=== PATIENT | female | born 1985 | race Caucasian/White ===

== ENCOUNTER 2023-12-06 09:24 | Outpatient (CLI) | payer OTHER ==
--- NOTE | 2023-12-07 09:48 | Ultrasound Report ---
PROCEDURE: OB Anatomy Scan INDICATIONS: SUPERVISION OF OUTSIDE/PRIOR DATING DATA: Last menstrual period (LMP): 07/12/2023. LMP-based estimated date of delivery (ADOLFO): 04/17/2024. First dating scan (date and location): 09/10/2023. Estimated date of delivery (ADOLFO) from first dating scan: 04/18/2024. The below data below was generated using the working ADOLFO of 04/17/2024 TECHNIQUE: Real-time scanning was performed of the fetus, with image documentation and biometric measurements. Endovaginal scanning: Not performed. COMPARISON: None available . FINDINGS: General: A single living intrauterine gestation is present. Presentation: Breech Placenta: Placental position is posterior, without previa. Amniotic fluid index: 14.3 cm, with the largest pocket measuring 4.3 cm. heart rate: 132 beats per minute. Maternal cervical canal: 4.4 cm long; normal length is 2.5 cm or more. biometrics: Biparietal diameter: 4.9 cm; 20 weeks 5 days; 36%. Head circumference: 18.8 cm; 21 weeks 1 day; 44%. Abdominal circumference: 16.9 cm; 21 weeks 6 days; 72%. Femur length: 3.7 cm; 21 weeks 4 days; 64%. Estimated gestational age from initial scan: 21 weeks 0 day. Composite gestational age from present scan: 21 weeks 2 days. Estimated weight and percentile: 440 g; 79% for gestational age. Measurement variability in biometric dating: +/- 10 days from 12-20 weeks gestation, +/- 2 weeks from 20-30 weeks gestation, +/- 3 weeks at 30 weeks gestation or later. Anatomic survey: Neuro: Ventricles are normal at less than 10 mm. Cisterna magna is normal at 3-11 mm. Cerebellum i s normal in size and morphology. Nuchal skin fold: Normal at less than 6 mm between 14 and 20 weeks gestational age. Face: Nose and lips, facial profile are normal. Spine: No evidence for spina bifida. Heart: 4-chambered heart is present. The left ventricular outflow tract is more. The right ventricul ar outflow tract is not well seen. Diaphragm: Diaphragm is intact. Stomach: Left-sided stomach is present. Kidneys: No hydronephrosis. Normal is less than 5 mm in 2nd trimester, less than 7 mm in 3rd trimester. Cord: 3 vessel cord has orthotopic insertion. Bladder: Normal in size. Extremities: All 4 extremities are visualized. IMPRESSION: 1. A single living IUP with appropriate interval growth. 2. The estimated weight is at the 79th percentile for gestational age. 3. Normal JOHN. 4. The right ventricular outflow tract is not well seen. Otherwise normal anatomic survey. Reviewed by: Valeri Saldivar MD on 12/07/2023 8:47 AM JULIET Approved by: Valeri Saldivar MD on 12/07/2023 8:47 AM JULIET Station ID: [id number]
== END 2023-12-06 09:25 | disposition home or self-care (01) ==
LOC: DI 09:24
PROVIDERS: ATTEND Nurse Practitioner Obstetrics & Gynecology
DX: Z34.02 Encounter for supervision of normal first pregnancy, second trimester (principal); Z36.89 Encounter for other specified antenatal screening

== ENCOUNTER 2024-01-13 07:32 | Outpatient (CLI) | payer OTHER ==
[2024-01-13 07:55] LABS: HCT - HEMATOCRIT 34.1 % (37.0-47.0); HGB - HEMOGLOBIN 10.9 g/dL (12.0-16.0); MEAN CORPUSCULAR HEMOGLOBIN 29.7 pg (27.0-31.0); MEAN CORPUSCULAR VOLUME 92.9 fL (81.0-99.0); MEAN PLATELET VOLUME 9.8 fL (7.9-10.8); RED BLOOD COUNT 3.67 10^6/uL (4.20-5.40); RED CELL DISTRIBUTION WIDTH 12.5 % (12.0-15.0); WHITE BLOOD COUNT 9.8 x10^3/uL (4.8-10.8)
[2024-01-13 08:05] LABS: GTT GLUCOSE,FASTING 87 mg/dL (74-109)
== END 2024-01-13 07:33 | disposition home or self-care (01) ==
LOC: LAB 07:32
PROVIDERS: ATTEND Nurse Practitioner Obstetrics & Gynecology
DX: Z36.9 Encounter for antenatal screening, unspecified (principal)
CPT/HCPCS: 36415; 82951; 85027

== ENCOUNTER 2024-03-06 08:00 | Outpatient (CLI) | payer OTHER ==
[2024-03-06 15:27] LABS: HCT - HEMATOCRIT 37.5 % (37.0-47.0); HGB - HEMOGLOBIN 12.8 g/dL (12.0-16.0); MEAN CORPUSCULAR HEMOGLOBIN 29.7 pg (27.0-31.0); MEAN CORPUSCULAR HGB CONC 34.1 g/dL (32.0-36.0); MEAN PLATELET VOLUME 10.4 fL (7.9-10.8); RED BLOOD COUNT 4.31 10^6/uL (4.20-5.40); RED CELL DISTRIBUTION WIDTH 12.6 % (12.0-15.0); WHITE BLOOD COUNT 12.8 x10^3/uL (4.8-10.8)
[2024-03-06 15:58] LABS: FERRITIN 18.1 ng/mL (11.0-306.8)
[2024-03-06 17:31] LABS: CALCIUM 9.3 mg/dL (8.5-10.3); CREATININE 0.5 mg/dL (0.6-1.3); POTASSIUM 3.9 mmol/L (3.5-4.5)
== END 2024-03-06 23:59 | disposition home or self-care (01) ==
LOC: LAB.WCP 08:00
PROVIDERS: ATTEND Nurse Practitioner
DX: R42 Dizziness and giddiness (principal)
CPT/HCPCS: 36415; 80048; 82728; 85027

== ENCOUNTER 2024-03-21 17:08 | Outpatient (CLI) | payer OTHER | END 2024-03-21 17:09 | disposition home or self-care (01) | LOC: LAB.WC 17:08 | PROVIDERS: ATTEND Nurse Practitioner | DX: Z36.85 Encounter for antenatal screening for Streptococcus B (principal) | CPT/HCPCS: 87081; 87797 ==

== ENCOUNTER 2024-04-10 08:08 | Inpatient (IN) ==
[2024-04-10] MEDS ORDERED: NIFEdipine 10 MG CAPSULE PO PRN (08:23)
[2024-04-10] MEDS ORDERED: SODIUM CHLORIDE FLUSH 0.9% 10 ML SYRINGE IVP PRN ×2 (08:23→22:03)
[2024-04-10] MEDS ORDERED: hydrALAZINE INJ 20 MG/ML VIAL IVP PRN ×2 (08:23)
[2024-04-10] MEDS ORDERED: METHYLERGONOVINE 0.2 MG/ML VIAL IM PRN (08:23)
[2024-04-10] MEDS ORDERED: CARBOPROST TROMETHAMINE 250 MCG/ML VIAL IM PRN (08:23)
[2024-04-10] MEDS ORDERED: OXYTOCIN/SODIUM CHLORIDE 500 ML IV PRN ×2 (08:23→22:54)
[2024-04-10] MEDS ORDERED: miSOPROStoL 200 MCG TABLET BC PRN (08:23)
[2024-04-10] MEDS ORDERED: LABETALOL 20 MG/4 ML SYRINGE IVP PRN ×3 (08:23)
[2024-04-10] MEDS ORDERED: TRANEXAMIC ACID IN NACL 1,000 MG/100 ML BAG IV PRN (08:23)
[2024-04-10] MEDS ORDERED: OXYTOCIN 10 UNIT/ML VIAL IM PRN (08:23)
[2024-04-10] MEDS ORDERED: lidocaine 1% 20 ML MDV ID PRN (08:23)
[2024-04-10] MEDS ORDERED: ONDANSETRON 4 MG/2 ML VIAL IVP PRN (08:28)
[2024-04-10] MEDS ORDERED: fentaNYL 100 MCG/2 ML VIAL IVP PRN ×2 (08:28→22:59)
[2024-04-10 08:55] LABS: BASOPHILS # (AUTO) 0.1 10^3/uL (0.0-0.1); BASOPHILS % (AUTO) 0.4 %; EOSINOPHILS # (AUTO) 0.3 10^3/uL (0.0-0.7); EOSINOPHILS % (AUTO) 2.3 %; HCT - HEMATOCRIT 38.7 % (37.0-47.0); HGB - HEMOGLOBIN 13.3 g/dL (12.0-16.0); LYMPHOCYTES # (AUTO) 2.3 10^3/uL (1.5-3.5); LYMPHOCYTES % (AUTO) 17.1 %; MEAN CORPUSCULAR HEMOGLOBIN 29.7 pg (27.0-31.0); MEAN CORPUSCULAR HGB CONC 34.4 g/dL (32.0-36.0); MEAN CORPUSCULAR VOLUME 86.4 fL (81.0-99.0); MEAN PLATELET VOLUME 10.6 fL (7.9-10.8); MONOCYTES # (AUTO) 1.4 10^3/uL (0.0-1.0); MONOCYTES % (AUTO) 10.6 %; NEUTROPHILS # (AUTO) 9.2 10^3/uL (1.5-6.6); NEUTROPHILS % (AUTO) 69.2 %; PLT - PLATELET COUNT 298 10^3/uL (130-450); RED BLOOD COUNT 4.48 10^6/uL (4.20-5.40); RED CELL DISTRIBUTION WIDTH 12.8 % (12.0-15.0); WHITE BLOOD COUNT 13.3 x10^3/uL (4.8-10.8)
[2024-04-10] MEDS ORDERED: SODIUM CHLORIDE FLUSH 0.9% 10 ML SYRINGE IVP SCH (09:00)
[2024-04-10 09:08] LABS: ALBUMIN 3.5 g/dL (3.2-5.5); BILIRUBIN,TOTAL 0.3 mg/dL (0.2-1.0); CALCIUM 9.2 mg/dL (8.5-10.3); CREATININE 0.6 mg/dL (0.6-1.3); POTASSIUM 3.9 mmol/L (3.5-4.5); TOTAL PROTEIN 6.9 g/dL (6.4-8.9)
[2024-04-10] MEDS: miSOPROStoL 100 MCG TABLET BC SCH (09:23)
[2024-04-10] MEDS: CALCIUM CARBONATE CHEW 500 MG TABLET PO SCH (09:23)
--- NOTE | 2024-04-10 09:34 | HISTORY & PHYSICAL EXAMINATION ---
Admit History Smoking Status: Former smoker HPI Current : Vital Signs Temperature 36.8 C 04/10/24 08:34 Pulse Rate 113 H 04/10/24 08:34 Respiratory Rate 16 04/10/24 08:34 Blood Pressure 125/86 04/10/24 08:34 Temperature 36.8 C 04/10/24 08:34 Pulse Rate 113 H 04/10/24 08:34 Respiratory Rate 16 04/10/24 08:34 Blood Pressure 125/86 04/10/24 08:34 NST Procedure NST Procedure: NST Procedure Start Time 15:34 Stop Time 15:55 Meds/Allgy Home Medications Ambulatory Orders Medication Instructions Recorded Confirmed aspirin 81 mg tablet,delayed 81 mg PO QDAY 04/04/24 04/04/24 release (Gloria Low Dose Aspirin) doxylamine succinate 25 mg tablet 25 mg PO Q6H PRN 04/04/24 04/04/24 ferrous sulfate 325 mg (65 mg 325 mg PO QDAY 04/04/24 04/04/24 iron) tablet (Feosol) vitamins no.159-iron tab PO 04/04/24 04/04/24 fumarate 28 mg-folic acid 800 mcg tablet ( Vitamin) pyridoxine (vitamin B6) 50 mg 50 mg PO QDAY 04/04/24 04/04/24 tablet Allergies Allergies Allergy/AdvReac Type Severity Reaction Status Date / Time Penicillins AdvReac Mild Unknown Verified 04/10/24 09:04 [facility] Medical History Medical History (Updated 04/10/24 @ 16:46 by Lisa Rodriguez CRNA) Exercise-induced asthma Surgical History Surgical History (Updated 04/04/24 @ 12:55 by Hanny Brannon MA) H/O oral surgery 2004 Social History Social History (Updated 04/04/24 @ 12:56 by Hanny Brannon MA) Smoking Status: Former smoker Patient requests smoking cessation consult: No Initiate information on smoking cessation: No Physical Abdominal Exam Vital Signs: Temp Pulse Resp BP 36.8 C 113 H 16 125/86 04/10/24 08:34 04/10/24 08:34 04/10/24 08:34 04/10/24 08:34 Plan for Labor Plan For Labor I expect patient to be DC'd or transferred within 96 hours.: Yes Plan for Labor: Elizabeth presents today for induction of labor with pre-induction cervical ripening secondary to advanced maternal age and obesity complicated . Upon arrival her cervix is noted to be 3/50/-3 and vertex with intact membranes. FHR demonstrates a Category I pattern. She has been a patient of [facility] since her transfer of care from [facility] at 32wks gestation. She has received consistent care for the duration of her which has been complicated by her advanced maternal age and obesity. She has had weekly NSTs which were initiated at 36wks gestation. In addition, her baby was noted to be in a breech position at 37wks gestation however when she presented for her ECV the fetus has spontaneously turned to vertex presentation. Dating criteria: LMP: 07/12/2023 ADOLFO by LMP: 04/17/2024 Medical Hx: PCOS, Anxiety, Depression Surgical History: Oral surgery (2004) Social Hx: Never smoker. No ETOH or IVDA. Works at [employer] with partner. Blood type: O+ Antibody: negative CBC: PLT HCT HGB RUB: immune VZV: immune HBsAg: negative HepC: negative RPR/AB-EIA: non-reactive HIV: negative PAP: due PP GC/CT: negative HSV: denies Genetic testing: QNatal-negative; MSAFP-negative Covid: vaccinated Flu: 03/21 FAS: Placenta: posterior Cord: 3VC JOHN: normal EFW: 79%ile 50gm OGCT: 2HR: F 87; 1hr 82; 2hr 105 3HR GTT: TDAP: 02/20 Breast Pump: Has one 3rd trimester PLT 261 HCT 34.1; HBG 10.9 GBS: POSITIVE RSV 03/21 Physical exam: Normocephalic, atraumatic Heart RRR w/o M/G/R Lungs CTAB Abdomen gravid, soft and nontender EFW 3600g FHR baseline 150s, moderate variability, + accels, no decels No contractions appreciated via tocometry SVE 3/50/-3 and vertex Bilateral LE's trace edema Mood is good Assessment: 39yo @ 39.0wks gestation by LMP c/w Medical induction of labor Advanced maternal age Obesity complicated , third trimester FHR Category I GBS POSITIVE Plan: Admit to [facility] under observation status for pre-induction cervical ripening with misoprostol x 1 dose of 50mcg BC Then admit to [facility] for induction of labor with pitocin and titrate per protocol. Initiate Ampicilin for GBS prophylaxis per protocol with initiation of pitocin. Continuous monitoring. Jacuzzi PRN. Nitrous oxide PRN. Epidural per maternal request. Anticipate . Conclusion/Plan Lab Results 04/10/24 08:40 04/10/24 08:40
[2024-04-10] MEDS ORDERED: diphenhydrAMINE INJ 50 MG/ML VIAL IVP PRN (13:43)
[2024-04-10] MEDS: AMPICILLIN 2 GM in SODIUM CHLORIDE 0.9% MINIBAG 100 ML IV ONE (14:10)
[2024-04-10] MEDS ORDERED: LACTATED RINGERS 1,000 ML ONE (14:13)
[2024-04-10] MEDS: OXYTOCIN/SODIUM CHLORIDE 500 ML IV SCH (14:22)
[2024-04-10] MEDS: LACTATED RINGERS 1,000 ML IV SCH (14:22)
--- NOTE | 2024-04-10 16:47 | ANESTHESIA PROCEDURE NOTE ---
Pre-Anesthesia VS, & Labs Diagnosis Surgical Diagnosis:: Induction of labor Procedure Procedure: vaginal delivery Vitals Vital Signs: Temp Pulse Resp BP 36.8 C 113 H 16 125/86 04/10/24 08:34 04/10/24 08:34 04/10/24 08:34 04/10/24 08:34 Height (in): 5 ft 2 in Weight (kg): 101.6 kg Body Mass Index: 40.9 BMI Classification: Morbidly Obese NPO Last Fluid Intake: clear liquids during labo Is Patient ?: Yes Lab Results Current Lab Results: Laboratory Tests 04/10/24 09:03: Blood Type Recheck O POSITIVE 04/10/24 08:40: WBC 13.3 H, RBC 4.48, Hgb 13.3, Hct 38.7, MCV 86.4, MCH 29.7, MCHC 34.4, RDW 12.8, Plt Count 298, MPV 10.6, Neut # (Auto) 9.2 H, Lymph # (Auto) 2.3, Nash # (Auto) 1.4 H, Eos # (Auto) 0.3, Baso # (Auto) 0.1, Absolute Nucleated RBC 0.00, Nucleated RBC % 0.0, Sodium 134 L, Potassium 3.9, Chloride 107, Carbon Dioxide 18 L, Anion Gap 9.0, BUN 6, Creatinine 0.6, Estimated GFR (MDRD) 112, Glucose 94, Calcium 9.2, Total Bilirubin 0.3, AST 15, ALT 8 L, A lkaline Phosphatase 144 H, Total Protein 6.9, Albumin 3.5, Globulin 3.4, Albumin/Globulin Ratio 1.0, Blood Type O POSITIVE, Antibody Screen NEGATIVE Lab results reviewed: Yes 04/10/24 08:40 04/10/24 08:40 Meds/Allgy Home Medications Ambulatory Orders Medication Instructions Recorded Confirmed aspirin 81 mg tablet,delayed 81 mg PO QDAY 04/04/24 04/04/24 release (Gloria Low Dose Aspirin) doxylamine succinate 25 mg tablet 25 mg PO Q6H PRN 04/04/24 04/04/24 ferrous sulfate 325 mg (65 mg 325 mg PO QDAY 04/04/24 04/04/24 iron) tablet (Feosol) vitamins no.159-iron tab PO 04/04/24 04/04/24 fumarate 28 mg-folic acid 800 mcg tablet ( Vitamin) pyridoxine (vitamin B6) 50 mg 50 mg PO QDAY 04/04/24 04/04/24 tablet Allergies Allergies Allergy/AdvReac Type Severity Reaction Status Date / Time Penicillins AdvReac Mild Unknown Verified 04/10/24 09:04 [facility] Medical History Medical History (Updated 04/10/24 @ 16:46 by Lisa Rodriguez CRNA) Exercise-induced asthma Surgical History Surgical History (Updated 04/04/24 @ 12:55 by Hanny Brannon MA) H/O oral surgery 2004 Social History Social History (Updated 04/04/24 @ 12:56 by Hanny Brannon MA) Smoking Status: Former smoker Patient requests smoking cessation consult: No Initiate information on smoking cessation: No Anesthesia Exam (Expanded) Exam General: Alert, Oriented x3 and Cooperative Dental: WNL Mouth Openin Fingerbreadth Neck Mobility: Normal Mallampati classification: II Thyromental Distance: 4-6 cm Mental/Cognitive Status: Alert/Oriented X3 and Normal for patient Plan Plan Anesthesia Type: Epidural Consent for Procedure(s) Verified and Reviewed: Yes Code Status: Attempt Resuscitation ASA Classification ASA classification: 2-Mild systemic disease Is this case an emergency?: No
[2024-04-10] MEDS: AMPICILLIN 1 GM in SODIUM CHLORIDE 0.9% MINIBAG 100 ML IV SCH (18:14)
[2024-04-10] MEDS ORDERED: LIDOCAINE 2%-EPI 1:100000 20 ML MDV ONE ×2 (19:05→21:10)
[2024-04-10] MEDS ORDERED: ROPIVACAINE 0.2% 200 MG/100 ML BAG EP ONE (19:06)
[2024-04-10] MEDS ORDERED: ROPIVACAINE 0.2% 200 MG/100 ML BAG EP PRN (19:12)
[2024-04-10 20:27] LABS: BASOPHILS % (AUTO) 0.2 %; EOSINOPHILS # (AUTO) 0.2 10^3/uL (0.0-0.7); HCT - HEMATOCRIT 39.7 % (37.0-47.0); LYMPHOCYTES # (AUTO) 2.2 10^3/uL (1.5-3.5); LYMPHOCYTES % (AUTO) 13.3 %; MEAN CORPUSCULAR HGB CONC 32.7 g/dL (32.0-36.0); MEAN CORPUSCULAR VOLUME 88.6 fL (81.0-99.0); MEAN PLATELET VOLUME 10.6 fL (7.9-10.8); MONOCYTES # (AUTO) 1.7 10^3/uL (0.0-1.0); MONOCYTES % (AUTO) 10.1 %; NEUTROPHILS # (AUTO) 12.3 10^3/uL (1.5-6.6); PLT - PLATELET COUNT 308 10^3/uL (130-450); RED BLOOD COUNT 4.48 10^6/uL (4.20-5.40); WHITE BLOOD COUNT 16.5 x10^3/uL (4.8-10.8)
--- NOTE | 2024-04-10 20:29 | PROVIDER PROGRESS NOTE ---
Labor Progress Note Uterine Monitoring Uterine Monitoring Mode: positive External toco Contraction Intensity: positive Mild Monitoring Monitor Mode: positive External ultrasound Heart Rate Variability: positive Moderate (6-25 bmp) Accelerations: positive Present, 15x15 Decelerations: positive None Vaginal Exam Dilation (in cm): 5 Effacement (%): 80 Station: -2 Labor Progress Note Labor Progress Note/Additional Text: S: Patient is feeling extremely anxious per her normal baseline but she states she is feeling very comfortable with proceeding with a delivery. She states the most significant part of her anxiety surrounding delivery came from pushing out a baby and she now does not have to do that so she is feeling accepting of this. O: FHR baseline 130, moderate variability, + accels, no decels Contractions palpate moderate every 2-4 minutes with soft resting tone AROM at 2004 and was noted to be a moderate amount of clear fluid Immediately following AROM presenting part was noted to be extremity and not cephalic Pt meets criteria for gestational hypertension, Pre-E labs pending collection now-prior labs WNL. 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 Reviewed with patient that care would be handed to physician secondary to proceed with section and pt agrees.
[2024-04-10] MEDS ORDERED: ceFAZolin 2 GM VIAL ONE (20:30)
[2024-04-10 20:31] LABS: SLIDE REVIEW? Indicated
[2024-04-10 20:40] LABS: ALBUMIN 3.6 g/dL (3.2-5.5); BILIRUBIN,TOTAL 0.2 mg/dL (0.2-1.0); CALCIUM 9.4 mg/dL (8.5-10.3); CREATININE 0.6 mg/dL (0.6-1.3); POTASSIUM 3.7 mmol/L (3.5-4.5); TOTAL PROTEIN 7.1 g/dL (6.4-8.9)
[2024-04-10] MEDS ORDERED: CITRIC ACID/SODIUM CITRATE 15 ML UDC PO ONE (20:41)
[2024-04-10 20:52] LABS: DIFFERENTIAL COMMENT MANUAL=AUTO DIFF; PLATELET ESTIMATE, MANUAL NORMAL (130-450,000) (NORMAL); PLATELET MORPHOLOGY NORMAL APPEARANCE (NORMAL); RBC MORPHOLOGY (MULTIPLE) NORMAL APPEARANCE (NORMAL)
[2024-04-10] MEDS: CITRIC ACID/SODIUM CITRATE 15 ML UDC PO ONE (21:02)
[2024-04-10] MEDS ORDERED: miSOPROStoL 200 MCG TABLET ONE (21:09)
[2024-04-10] MEDS ORDERED: CARBOPROST TROMETHAMINE 250 MCG/ML VIAL IM ONE (21:09)
[2024-04-10] MEDS ORDERED: METHYLERGONOVINE 0.2 MG/ML VIAL ONE (21:09)
[2024-04-10] MEDS ORDERED: OXYTOCIN/SODIUM CHLORIDE 500 ML IV ONE (21:10)
[2024-04-10] MEDS ORDERED: DEXMEDETOMIDINE 200 MCG/2 ML VIAL ONE (21:23)
[2024-04-10] MEDS ORDERED: SODIUM CHLORIDE 0.9% 10 ML VIAL IVP ONE (21:46)
[2024-04-10] MEDS ORDERED: PROPOFOL 200 MG/20 ML VIAL IVP ONE (21:46)
[2024-04-10] MEDS ORDERED: KETAMINE 500 MG/10 ML VIAL ONE (21:51)
[2024-04-10] MEDS ORDERED: ACETAMINOPHEN 1,000 MG/100 ML 1,000 MG/100 ML BAG IV ONE (22:10)
[2024-04-10] MEDS ORDERED: KETOROLAC 30 MG/ML VIAL ONE (22:11)
[2024-04-10] MEDS ORDERED: NALOXONE 0.4 MG/ML VIAL IVP PRN ×2 (22:54→22:59)
[2024-04-10] MEDS ORDERED: HYDROmorphone 0.5 MG/0.5 ML SYRINGE IVP PRN (22:59)
[2024-04-10] MEDS ORDERED: ATROPINE ABBOJECT 1 MG/10 ML SYRINGE IVP PRN (22:59)
[2024-04-10] MEDS ORDERED: MORPHINE 2 MG/ML CARPUJECT IVP PRN (22:59)
[2024-04-10] MEDS ORDERED: LACTATED RINGERS 1,000 ML IV SCH (23:00)
--- NOTE | 2024-04-10 23:03 | ANESTHESIA POST OP EVALUATION ---
Anesthesia Post Eval Post Anesthesia Eval Vitals: Last Vital Signs Temp 36.4 C L 04/10/24 22:30 Pulse 68 04/10/24 22:55 Resp 22 04/10/24 22:55 BP 110/78 04/10/24 22:55 Pulse Ox 96 04/10/24 22:55 CV Function Including HR & BP: Stable Pain Control: Satisfactory Nausea & Vomiting: Negative Mental Status: Baseline Respiratory Status: Airway Patent Hydration Status: Satisfactory Anesthesia Complications: None
--- NOTE | 2024-04-10 23:04 | ANESTHESIA PROCEDURE NOTE ---
Epidural Discontinuation Epidural D/C Discontinued: positive Epidural d/c and Tip intact
--- NOTE | 2024-04-10 23:09 | OPERATIVE REPORT ---
Operative Report General Admit Date: 04/10/24 Procedure Data: Operation Date: 04/10/24 21:00 Proposed Procedures p Section(Not Applicable) - Ofelia Don DO Janna Actual Procedures p Section(Not Applicable) - Ofelia Don DO Janna Pre-Op Diagnosis: BREECH PRESENTATION Anesthesia Type Epidural Case Staff Anesthesia Provider: Lisa Rodriguez Assisting Provider: Bernie Zamorano Case Times Into Recovery: 04/10/24 22:29 Procedure Start: 04/10/24 21:31 Procedure End: 04/10/24 22:16 Time out: 04/10/24 21:28 Tourniquet Tourniquet #: Tourniquet Site Padding: Pressure: Applied by: Time up #1: Time Down #1: Time Up #2: Time Down #2: Pre-Op Diagnosis: 39yo with IUP 39w, breech presentation, AMA Post Op Diagnosis: 39yo with IUP 39w, breech presentation, AMA Procedure Note Estimated Blood Loss (ml): 800 Pathology: Cord blood and gases collected Placenta discarded Indications: 39yo with IUP 39w admitted today for AMA induction. Initially noted to be cephalic, after misoprostol given and AROM performed, extremity noted. Informed consent obtained for section. Findings: Head maternal right, transverse back down lie Normal appearing uterus, tubes, ovaries Other Other Information/Narrative: Under epidural anaesthetic with a martin catheter inserted, the patient was prepped and draped in the usual sterile fashion in the supine position with a leftward tilt. A Pfannensteil incision was made. The incision was carried down to the fascia with cautery. The fascia was incised transversely and dissected off the rectus muscle using sharp dissection. Electrocautery was used for hemostasis. The peritoneum was opened taking care not to injure the bladder. The vesicouterine peritoneum was dissected off the lower uterine segment. The lower segment was assessed and a low transverse incision was made. The uterine incision was extended bluntly. The fetus was presenting as a transverse back down lie, head maternal right. Presenting part was right arm. It was difficult to palpate and grasp feet, and the head was high maternal right side. The hysterotomy was extended about 2cm midline vertically in a T fashion. feet were then grasped and delivered. Body, arms and flexed head then delivered. Cord was clamped twice and cut and the baby transferred to the warmer, awaiting the pediatric staff. Cord blood and gases were then obtained. The placenta was then delivered with assistance. The uterus was explored and was empty of all tissue. The uterus was exteriorized for better visualization. The uterine incision was then closed with 0-Monocryl. The vertical extension also repaired with 0-Monocryl. Tubes and ovaries were examined and appeared normal. Hemostasis noted at all dissection sites. Intercede placed over hysterorraphy. The fascia was closed with 0-Vicryl in a running unlocked fashion. Subcutaneous layer reapproximated with 2-0 chromic. Skin was then reapproximated with 3-0 Monocryl. At the end of the procedure all sponges, instruments, and sharps were counted and correct. Estimated blood loss was 800cc. The patient and baby were taken to the recovery in stable condition. Apgars 1/6/8. Due to the vertical midline T extension, recommend a repeat section in subsequent pregnancies.
--- NOTE | 2024-04-10 23:41 | DELIVERY NOTE ---
Delivery Note Labor Labor: positive Induced by ARM Delivery Method Delivery Method: positive Primary Cervical Ripening Method Cervical Ripening Method: positive Misoprostil Presentation Presentation: positive Transverse (Head maternal right, transverse back down) Nuchal Cord Nuchal Cord: positive None Amniotic Fluid Description Amniotic Fluid Description: positive Clear Delivery Outcome Delivery Outcome: positive Livebirth Cuddy : positive Stimulated, Warmed and Warmer used sex: positive Male Cord Cord: positive 3 vessels Placenta Placenta: positive Expressed Estimated Blood Loss Estimated Blood Loss (in cc): 800 Delivery Comments (Free Text/Narrative) Delivery Comments (Free Text/Narrative): See operative report, recommend repeat section in subsequent pregnancies.
[2024-04-11] MEDS: oxyCODONE 5 MG TABLET PO PRN (00:27)
[2024-04-11] MEDS: KETOROLAC 30 MG/ML VIAL IVP SCH (04:18)
[2024-04-11] MEDS ORDERED: CITRIC ACID/SODIUM CITRATE 15 ML UDC PO ONE (04:30)
[2024-04-11 05:29] LABS: HCT - HEMATOCRIT 33.7 % (37.0-47.0); HGB - HEMOGLOBIN 11.1 g/dL (12.0-16.0); MEAN CORPUSCULAR HEMOGLOBIN 28.9 pg (27.0-31.0); MEAN CORPUSCULAR HGB CONC 32.9 g/dL (32.0-36.0); MEAN CORPUSCULAR VOLUME 87.8 fL (81.0-99.0); MEAN PLATELET VOLUME 10.8 fL (7.9-10.8); RED BLOOD COUNT 3.84 10^6/uL (4.20-5.40); WHITE BLOOD COUNT 21.9 x10^3/uL (4.8-10.8)
[2024-04-11 06:52] LABS: PROTEIN/CREATININE RATIO,URINE 0.2 (<=0.2)
[2024-04-11] MEDS: ACETAMINOPHEN 500 MG TABLET PO SCH (08:07)
[2024-04-11] MEDS: DOCUSATE SODIUM 100 MG CAPSULE PO SCH (08:11)
--- NOTE | 2024-04-11 08:22 | PROVIDER PROGRESS NOTE ---
Subjective Subjective Subjective: Subjective Patient reports she is doing well. Lochia appropriate. Denies heavy bleeding. Ambulating. Pelvic and abdominal pain well-controlled. Tolerating oral intake. Diet: Regular. Voiding without difficulty. Passing flatus. Denies BM. Patient is bonding with baby in room Breast feeding going well. Denies feeling lightheaded, dizzy or excessively fatigued. Current Medications Current Medications Current Medications: Current Medications Generic Name Dose Route Start Last Admin Trade Name Freq PRN Reason Stop Dose Admin Acetaminophen 1,000 mg 04/10/24 23:00 04/11/24 08:07 Acetaminophen 500 Mg Tablet PO 1,000 mg Q8H SRINIVAS Administration Calcium Carbonate/Glycine 500 mg 04/10/24 10:00 04/11/24 08:10 Calcium Carbonate Chew 500 Mg Tablet PO 500 mg BID SRINIVAS Administration Carboprost Tromethamine 250 mcg 04/10/24 08:23 Carboprost Tromethamine 250 Mcg/Ml Vial IM 04/15/24 08:23 Q15M PRN Step 4: Hemorrhage protocol Diphenhydramine HCl 25 mg 04/10/24 13:43 Diphenhydramine Inj 50 Mg/Ml Vial IVP Q6H PRN Allergy Symptoms Docusate Sodium 200 mg 04/11/24 09:00 04/11/24 08:11 Docusate Sodium 100 Mg Capsule PO 200 mg BID SRINIVAS Administration Hydralazine HCl 5 - 20 mg 04/10/24 08:23 Hydralazine Inj 20 Mg/Ml Vial IVP Q20M PRN SBP >160 or DBP >110 Protocol Hydralazine HCl 10 mg 04/10/24 08:23 Hydralazine Inj 20 Mg/Ml Vial IVP 04/15/24 08:23 .ONCE PRN Step 9 of Labetalol protocol Protocol Tranexamic Acid 1,000 mg in 100 mls @ 600 mls/hr 04/10/24 08:23 Tranexamic 1,000 Mg/100ml-Nacl IV 04/15/24 08:23 .ONCE PRN EBL >1200mL and within 3hr Lactated Ringer's 1,000 mls @ 125 mls/hr 04/10/24 15:00 04/11/24 06:15 Lr IV 125 mls/hr .Q8H SRINIVAS Administration Oxytocin/Sodium Chloride 500 mls @ 999 mls/hr 04/10/24 22:54 Pitocin/Sodium Chloride IV PRN PRN POST- HEMORR PREVENTION Protocol 999 MILLIUNIT/MIN Ibuprofen 600 mg 04/11/24 23:00 Ibuprofen 600 Mg Tablet PO Q6HR SRINIVAS Ketorolac Tromethamine 30 mg 04/11/24 00:00 04/11/24 04:18 Ketorolac 30 Mg/Ml Vial IVP 04/11/24 12:01 30 mg Q6HR SRINIVAS Administration Labetalol HCl 20 - 80 mg 04/10/24 08:23 Labetalol 20 Mg/4 Ml Syringe IVP Q10M PRN SBP >160 or DBP >110 Protocol Labetalol HCl 20 mg 04/10/24 08:23 Labetalol 20 Mg/4 Ml Syringe IVP 04/15/24 08:23 .ONCE PRN Step 9 of nifedipine protocol Protocol Labetalol HCl 40 mg 04/10/24 08:23 Labetalol 20 Mg/4 Ml Syringe IVP 04/15/24 08:23 .ONCE PRN Step 9 of hydrALAZine protocol Protocol Methylergonovine Maleate 0.2 mg 04/10/24 08:23 Methylergonovine 0.2 Mg/Ml Vial IM 04/15/24 08:23 .ONCE PRN Step 2: Hemorrhage protocol Misoprostol 50 mcg 04/10/24 09:00 04/10/24 09:23 Misoprostol 100 Mcg Tablet BC 50 mcg Q4HR SRINIVAS Administration Misoprostol 800 mcg 04/10/24 08:23 Misoprostol 200 Mcg Tablet BC 04/15/24 08:23 .ONCE PRN Step 3: Hemorrhage protocol Naloxone HCl 0.4 mg 04/10/24 22:54 Naloxone 0.4 Mg/Ml Vial IVP .ONCE PRN Opioid overdose Nifedipine 10 - 20 mg 04/10/24 08:23 Nifedipine 10 Mg Capsule PO Q20M PRN SBP >160 or DBP >110 Protocol Ondansetron HCl 4 mg 04/10/24 08:28 Ondansetron 4 Mg/2 Ml Vial IVP Q4HR PRN Nausea / Vomiting Oxycodone HCl 5 mg 04/10/24 22:54 04/11/24 08:11 Oxycodone 5 Mg Tablet PO 5 mg Q6H PRN Administration Severe Pain 6 -10 Oxytocin 10 unit 04/10/24 08:23 Oxytocin 10 Unit/Ml Vial IM 04/15/24 08:23 .ONCE PRN Step one: If no IV access Sodium Chloride 10 ml 04/10/24 22:03 Sodium Chloride Flush 0.9% 10 Ml Syringe IVP PRN PRN NEEDED PER PROVIDER ORDERS Sodium Chloride 10 ml 04/11/24 01:00 Sodium Chloride Flush 0.9% 10 Ml Syringe IVP 0100,0900,1700 SRINIVAS Objective Vital Signs/Intake & Output Vital Signs: Vital Signs x48h Temp Pulse Resp BP Pulse Ox 04/11/24 06:55 36.4 C L 88 18 120/77 97 04/11/24 01:26 36.6 C 88 18 136/81 H 97 04/11/24 00:32 36.7 C 18 130/80 98 Intake & Output: Intake & Output 04/09/24 04/10/24 04/11/24 04/12/24 05:59 05:59 05:59 05:59 Intake Total 1346 / 1346 904 / 904 Output Total 650 / 650 Balance 696 / 696 904 / 904 Weight (kg) 223 lb 15.834 oz Lab Results 04/11/24 05:10 04/10/24 20:21 Other Labs: Lab Results x24hrs 04/11/24 04/10/24 04/10/24 Range/Units 05:10 20:21 09:03 WBC 21.9 H 16.5 H (4.8-10.8) x10^3/uL RBC 3.84 L 4.48 (4.20-5.40) 10^6/uL Hgb 11.1 L 13.0 (12.0-16.0) g/dL Hct 33.7 L 39.7 (37.0-47.0) % MCV 87.8 88.6 (81.0-99.0) fL MCH 28.9 29.0 (27.0-31.0) pg MCHC 32.9 32.7 (32.0-36.0) g/dL RDW 13.0 13.0 (12.0-15.0) % Plt Count 249 308 (130-450) 10^3/uL MPV 10.8 10.6 (7.9-10.8) fL Neut # (Auto) 12.3 H (1.5-6.6) 10^3/uL Lymph # (Auto) 2.2 (1.5-3.5) 10^3/uL Gulf # (Auto) 1.7 H (0.0-1.0) 10^3/uL Eos # (Auto) 0.2 (0.0-0.7) 10^3/uL Baso # (Auto) 0.0 (0.0-0.1) 10^3/uL Absolute Nucleated RBC 0.00 x10^3/uL Band Neuts % (Manual) Not Reportable Abnorm Lymph % (Manual) Not Reportable Nucleated RBC % 0.0 /100WBC Neutrophils # (Manual) Not Reportable Lymphocytes # (Manual) Not Reportable Monocytes # (Manual) Not Reportable Eosinophils # (Manual) Not Reportable Basophils # (Manual) Not Reportable Differential Comment MANUAL=AUTO DIFF Manual Slide Review Indicated Platelet Estimate NORMAL (130-450,000) (NORMAL) Platelet Morphology NORMAL APPEARANCE (NORMAL) RBC Morph Micro Appear NORMAL APPEARANCE (NORMAL) Sodium 134 L (135-145) mmol/L Potassium 3.7 (3.5-4.5) mmol/L Chloride 103 (101-111) mmol/L Carbon Dioxide 22 (21-32) mmol/L Anion Gap 9.0 (6-13) BUN 7 (6-20) mg/dL Creatinine 0.6 (0.6-1.3) mg/dL Estimated GFR (MDRD) 112 (>89) Glucose 90 (74-104) mg/dL Calcium 9.4 (8.5-10.3) mg/dL Total Bilirubin 0.2 (0.2-1.0) mg/dL AST 16 (10-42) IU/L ALT 7 L (10-60) IU/L Alkaline Phosphatase 153 H (42-121) IU/L Total Protein 7.1 (6.4-8.9) g/dL Albumin 3.6 (3.2-5.5) g/dL Globulin 3.5 (2.1-4.2) g/dL Albumin/Globulin Ratio 1.0 (1.0-2.2) Urine Creatinine mg/dL Ur Total Protein Timed mg/dL Protein/Creatinin Ratio (<=0.2) Blood Type Blood Type Recheck O POSITIVE Antibody Screen 04/10/24 04/10/24 Range/Units 08:40 06:30 WBC 13.3 H (4.8-10.8) x10^3/uL RBC 4.48 (4.20-5.40) 10^6/uL Hgb 13.3 (12.0-16.0) g/dL Hct 38.7 (37.0-47.0) % MCV 86.4 (81.0-99.0) fL MCH 29.7 (27.0-31.0) pg MCHC 34.4 (32.0-36.0) g/dL RDW 12.8 (12.0-15.0) % Plt Count 298 (130-450) 10^3/uL MPV 10.6 (7.9-10.8) fL Neut # (Auto) 9.2 H (1.5-6.6) 10^3/uL Lymph # (Auto) 2.3 (1.5-3.5) 10^3/uL Gulf # (Auto) 1.4 H (0.0-1.0) 10^3/uL Eos # (Auto) 0.3 (0.0-0.7) 10^3/uL Baso # (Auto) 0.1 (0.0-0.1) 10^3/uL Absolute Nucleated RBC 0.00 x10^3/uL Band Neuts % (Manual) Abnorm Lymph % (Manual) Nucleated RBC % 0.0 /100WBC Neutrophils # (Manual) Lymphocytes # (Manual) Monocytes # (Manual) Eosinophils # (Manual) Basophils # (Manual) Differential Comment Manual Slide Review Platelet Estimate (NORMAL) Platelet Morphology (NORMAL) RBC Morph Micro Appear (NORMAL) Sodium 134 L (135-145) mmol/L Potassium 3.9 (3.5-4.5) mmol/L Chloride 107 (101-111) mmol/L Carbon Dioxide 18 L (21-32) mmol/L Anion Gap 9.0 (6-13) BUN 6 (6-20) mg/dL Creatinine 0.6 (0.6-1.3) mg/dL Estimated GFR (MDRD) 112 (>89) Glucose 94 (74-104) mg/dL Calcium 9.2 (8.5-10.3) mg/dL Total Bilirubin 0.3 (0.2-1.0) mg/dL AST 15 (10-42) IU/L ALT 8 L (10-60) IU/L Alkaline Phosphatase 144 H (42-121) IU/L Total Protein 6.9 (6.4-8.9) g/dL Albumin 3.5 (3.2-5.5) g/dL Globulin 3.4 (2.1-4.2) g/dL Albumin/Globulin Ratio 1.0 (1.0-2.2) Urine Creatinine 102.0 mg/dL Ur Total Protein Timed 20 mg/dL Protein/Creatinin Ratio 0.2 (<=0.2) Blood Type O POSITIVE Blood Type Recheck Antibody Screen NEGATIVE Assessment/Plan Problem List (1) Delivery by section: Impression: Routine postoperative care. Continue routine care. Anticipate discharge in 1-2 days. Prevena wound VAC in place. Discussed management after discharge. (2) Delivery outcome of valdez : Impression: Routine care. Qualifiers: outcome: live Qualified Code(s): Z37.0 - Single live Exam Other Other/Additional Findings: General: Alert, oriented, no apparent distress. Cardiovascular: Regular rate. Regular rhythm. Lungs: No increased work of breathing. Abdomen: Uterus firm. Below umbilicus. No guarding or rebound. Extremities: No pain on palpation. No cords palpated. Distal pulses intact. Incision: Bandage in place.
[2024-04-11] MEDS: ceFAZolin (2G) 2 GM in SODIUM CHLORIDE 0.9% MINIBAG 100 ML IV ONE (08:38)
[2024-04-11] MEDS: LACTATED RINGERS 1,000 ML IV ONE (08:38)
[2024-04-11] MEDS: SODIUM CHLORIDE FLUSH 0.9% 10 ML SYRINGE IVP SCH (08:45)
[2024-04-11] MEDS ORDERED: KETOROLAC 30 MG/ML VIAL ONE (16:03)
[2024-04-12] MEDS: IBUPROFEN 600 MG TABLET PO SCH (02:52)
--- NOTE | 2024-04-12 09:01 | Labor Flowsheet ---
Labor Flowsheet Datetime Report Generated by CPN: 04/12/2024 09:01 Datetime: 04/10/2024 21:04 Communication Comments: monitors d/c, pt transf. to OR Datetime: 04/10/2024 21:01 VITAL SIGNS NBP Sys/Lilliam/Mean (mmHg): 116 : 89 : 96 Pulse: 96 LaborFlag: Labor Datetime: 04/10/2024 20:30 UTERINE ACTIVITY Monitor Mode: External Frequency (min): occasional Quality: Mild Pattern: Normal: <= 5 Contractions in 10 Minutes Resting Tone (Palpate): Relaxed ASSESSMENT A Monitor Mode: Telemetry FHR Baseline Rate : 135 Variability: Moderate 6-25 bpm Accelerations: 15X15 Decelerations: None Category: Category I Oxygen Method: Room Air Datetime: 04/10/2024 20:20 SpO2 (%): 99 Datetime: 04/10/2024 20:12 MEDICATIONS Pitocin (milliunits): Discontinued Datetime: 04/10/2024 20:05 Comments: breech position Datetime: 04/10/2024 20:04 Membrane Status: Ruptured Membranes Rupture Method: Artificial Amniotic Fluid Color: Clear Amniotic Fluid Amount: Moderate Datetime: 04/10/2024 20:00 Duration (sec): 60-80sec Pitocin Checklist: At Least 1 Acceleration of 15 bpm x 15 Seconds in 30 Minutes or Adequate Variabi lity; No More than 1 Late Deceleration Occurred in Past 30 Minutes; No More than 2 Variable Decelerat ions > 60 Seconds in Duration and decreasing >60 bpm in 30 minutes; No More than 5 Uterine Contractio ns in 10 Minutes for any 20 Minute Interval; Uterus Palpates Soft between Contractions Datetime: 04/10/2024 19:36 Stage of : Labor Respirations: 18 Temperature (C): 36.5 Temperature Route: Oral Datetime: 04/10/2024 19:31 Vital Sign Comments: notified A. Jaun CNM regarding elevated BP. explained pt had been moving and v lenore anxious during epidural. Orders to recheck after. Datetime: 04/10/2024 19:30 Contraction Comments: difficulty picking up ctx on toco due to pt positioning for epidural Datetime: 04/10/2024 19:24 ANESTHESIA Anesthesia Plans: Epidural Epidural Positioning: Sitting Epidural Procedure: Cath Placed Datetime: 04/10/2024 19:16 PROCEDURE TIME OUT Procedure Verify: Correct Patient Identity; Correct Side and Site are Marked; Accurate Procedure Co nsent Form; Agreement on Procedure to be Done; Correct Patient Position Anesthesia Comments: T/O performed Datetime: 04/10/2024 19:08 COMMUNICATION Communication: RN at Bedside; Provider at Bedside Datetime: 04/10/2024 18:48 VAGINAL EXAM Dilatation (cm): 4.0 Effacement (%): 80 Station: -2 Exam by: Manan Zamorano CNM Vaginal Bleeding: None Cervix, Position: Anterior Datetime: 04/10/2024 14:54 I/O Interventions: Up to BR Datetime: 04/10/2024 14:04 Monitor Interventions for UA: [place] Adjusted Monitor Interventions for FHR: Ultrasound Adjusted Datetime: 04/10/2024 09:25 Cervical Ripening Agents: Cytotec @ 50 Buccal Medication Comments: Tums 500 mg PO Datetime: 04/10/2024 08:40 PATIENT CARE IV/Blood Work: IV Started; Labs Drawn with IV Start; IV Saline Locked
--- NOTE | 2024-04-12 14:20 | Discharge Summary ---
Discharge Summary Admit Date: 04/10/24 Discharge Date: 04/12/24 Discharging Provider: Prateek Harris MD DIAGNOSES Admission Diagnoses: Induction of labor, 39 weeks gestation Discharge Diagnoses with Status of Each Condition: Induction of labor, 39 weeks gestation, Breech presentation, status post primary low-transverse section, delivery of live valdez HPI History of Present Illness: Subjective Patient reports she is doing well. Lochia appropriate. Denies heavy bleeding. Ambulating. Pelvic and abdominal pain well-controlled. Tolerating oral intake. Diet: Regular. Voiding without difficulty. Passing flatus. Denies BM. Patient is bonding with baby in room Breast feeding going well. Denies feeling lightheaded, dizzy or excessively fatigued. Objective General: Alert, oriented, no apparent distress. Cardiovascular: Regular rate. Regular rhythm. Lungs: No increased work of breathing. Abdomen: Uterus firm. Below umbilicus. No guarding or rebound. Extremities: No pain on palpation. No cords palpated. Distal pulses intact. Incision: Wound VAC in place HOSPITAL COURSE Hospital Course: Patient was admitted for induction of labor, baby had an unstable lie. Was previously scheduled for version, but upon presentation was cephalic. Again on admission was cephalic, but after epidural when amniotomy was performed, it was noted to be breech presentation so she was taken back for section. She did have a slight extension and a T fashion, but otherwise uncomplicated surgery. course was unremarkable. She was discharged with her on postop day 2. ALLERGIES Allergies Allergy/AdvReac Type Severity Reaction Status Date / Time Penicillins AdvReac Mild Unknown Verified 04/10/24 09:04 MEDICATIONS Ambulatory Orders Medication Instructions Recorded Confirmed doxylamine succinate 25 mg tablet 25 mg PO Q6H PRN sleep 04/04/24 04/11/24 vitamins no.159-iron 1 tab PO DAILY 04/04/24 04/11/24 fumarate 28 mg-folic acid 800 mcg tablet ( Vitamin) acetaminophen 500 mg tablet 1,000 mg (2 x 500 mg) PO Q8H #60 04/12/24 tabs docusate sodium 100 mg capsule 200 mg (2 x 100 mg) PO BID #30 caps 04/12/24 (Stool Softener) ibuprofen 600 mg tablet 600 mg PO Q6HR #30 tabs 04/12/24 oxycodone 5 mg tablet 5 mg PO Q4HR PRN Severe Pain 6 -10 04/12/24 5 days #15 tabs LABS 04/11/24 05:10 04/10/24 20:21 FOLLOW UP Follow Up: With Prateek Harris MD in 1 to 2 weeks TIME SPENT Time Spent in Discharge (Minutes): 20 Discharge Plan Discharge Patient Disposition: Home, Self Care Prescriptions: New acetaminophen 500 mg Tablet 1,000 mg PO Q8H Qty: 60 0RF docusate sodium [Stool Softener] 100 mg Capsule 200 mg PO BID Qty: 30 0RF ibuprofen 600 mg Tablet 600 mg PO Q6HR Qty: 30 0RF oxycodone 5 mg Tablet 5 mg PO Q4HR PRN (Reason: Severe Pain 6 -10) 5 Days Qty: 15 0RF Continued Vitamin 28 mg iron- 800 mcg tablet 1 tab PO DAILY doxylamine succinate 25 mg tablet 25 mg PO Q6H PRN (Reason: sleep) Activity Restrictions: Additional Comments Diet: Regular Print Language: Moroccan Patient Instructions: Depression , C Section Dc Follow-up Care: Prateek Harris MD [Provider Admit Priv/Credential] -
[2024-04-12 16:40] VITALS: O2SAT 98
== END 2024-04-12 18:55 | disposition home or self-care (01) | DRG 788 ==
LOC: FBP 08:08 → WFO 08:08 → FBP 08:09
PROVIDERS: ADMIT Nurse Practitioner Obstetrics & Gynecology; ATTEND Nurse Practitioner Obstetrics & Gynecology
DX: Z3A.39 39 weeks gestation of pregnancy; Z37.0 Single live birth; O32.1XX0 Maternal care for breech presentation, not applicable or unspecified; O99.824 Streptococcus B carrier state complicating childbirth; O99.214 Obesity complicating childbirth